=== PATIENT | male | born 1990 | race Hispanic/Latino ===

== ENCOUNTER 2018-12-27 19:46 | Emergency (ER) | payer OTHER ==
[2018-12-27] MEDS ORDERED: ORPHENADRINE CITRATE 30 MG/ML ML ONE (20:16)
[2018-12-27] MEDS ORDERED: KETOROLAC TROMETHAMINE 60 MG/2 ML VIAL ONE (20:16)
== END 2018-12-27 20:44 | disposition home or self-care (01) ==
LOC: EDH 19:46
DX: M62.830 Muscle spasm of back (principal); Z72.0 Tobacco use
CPT/HCPCS: 96372 ×2; 99284; J1885; J2360

== ENCOUNTER 2023-09-08 14:26 | Emergency (ER) | payer BC ==
[~2023-09-08] VITALS: Ht 177.8 cm; Wt 81.6 kg
[2023-09-08] MEDS ORDERED: IBUP-2070 PO (17:32)
[2023-09-08 18:00] VITALS: BP 135/74; PULSE 88; RESP 18; O2SAT 99
[2023-09-08] MEDS: IBUPROFEN 400 MG TABLET ONE (18:00)
[2023-09-08] MEDS: IBUPROFEN 800 MG TAB PO ONE (18:00)
== END 2023-09-08 18:02 | disposition home or self-care (01) ==
LOC: EDH 14:26
DX: M25.511 Pain in right shoulder (principal); M79.642 Pain in left hand; V89.2XXA Person injured in unspecified motor-vehicle accident, traffic, initial encounter; Y93.I9 Activity, other involving external motion; Y92.488 Other paved roadways as the place of occurrence of the external cause; Y99.8 Other external cause status
CPT/HCPCS: 73030

== ENCOUNTER 2024-03-31 11:39 | Emergency (ER) | payer SELFPAY ==
[~2024-03-31] VITALS: Ht 177.8 cm; Wt 81.6 kg
[~2024-03-31 11:39] MED LIST: IBUP-2070 PO
[2024-03-31] MEDS: LIDOCAINE HCL 1% 20 ML VIAL INJ SCH (12:00)
[2024-03-31] MEDS: ibuPROFEN 800 MG TAB PO ONE (12:54)
[2024-03-31] MEDS: teTANUS/diphthERIA TOXOID [ADULT] 0.5 ML VIAL IM ONE (12:54)
[2024-03-31] MEDS ORDERED: IBUP-2077 PO (13:07)
[2024-03-31 14:14] VITALS: BP 124/65; PULSE 84; RESP 15; TEMP 97.9; O2SAT 97
== END 2024-03-31 14:16 | disposition home or self-care (01) ==
LOC: EDH 11:39
DX: S01.511A Laceration without foreign body of lip, initial encounter (principal); S10.93XA Contusion of unspecified part of neck, initial encounter; S80.01XA Contusion of right knee, initial encounter; Y04.2XXA Assault by strike against or bumped into by another person, initial encounter; Y93.89 Activity, other specified; Y92.89 Other specified places as the place of occurrence of the external cause; Y99.8 Other external cause status
CPT/HCPCS: 40650; 70450; 72125; 73562; 90471; 90714

== ENCOUNTER 2024-10-25 14:37 | Emergency (ER) | payer SELFPAY ==
[~2024-10-25] VITALS: Ht 177.8 cm; Wt 81.6 kg
[~2024-10-25 14:37] MED LIST changes: +IBUP-2077 PO
--- NOTE | 2024-10-25 15:36 | NUR ---
EAR WAS IRRIGATED, LEFT SIDE.
[2024-10-25] MEDS ORDERED: CIPR7.5D7 OTIC (15:53)
--- NOTE | 2024-10-25 15:55 | ERN ---
General Chief Complaint: Earache Stated Complaint: EAR PAIN Time Seen by MD: 15:01 Time Seen by Midlevel: 15:01 Source: patient History of Present Illness Initial Comments 34-year-old male presents to the ED for evaluation of left ear pain onset three days ago. Patient reports decreased hearing, but denies any other associated symptoms at this time. Patient states I feel like there is fluid in there. States mother put Xavier in the ear canal. Denies significant PMHx. Allergies: Coded Allergies: No Known Allergies (Unverified Allergy, Unknown, 12/27/18) Home Meds Active Scripts Ciprofloxacin HCl/Dexameth (Ciproflox-Dexameth Otic Susp) 0.3 %-0.1 % Drops.susp, 4 DROP OTIC BID for 7 Days, #7.5 ML 0 Refills Prov:BORA VALENTIN 10/25/24 Ibuprofen (Ibuprofen 800 mg Tab) 800 Mg Tab, 800 MG PO Q6H PRN for PAIN, #30 TAB Prov:ANNY WHITTINGTON NP 03/31/24 Ibuprofen (Ibuprofen) 600 Mg Tablet, 600 MG PO Q6H PRN for PAIN, #20 TAB Prov:DELMI DC MD 09/08/23 Past Medical History Past Medical History: No Pertinent History Past Surgical History: None ROS Dictation Constitutional: Negative for fever,chills, and weight loss Eyes: Negative for injury, pain,redness, and discharge ENT: Positive for left ear pain Cardiovascular: Negative for chest pain, palpitations, and edema Respiratory: Negative for shortness of breath, cough, and wheezing, Abdomen/GI: Negative for abdominal pain, nausea, vomiting, diarrhea, and constipation Back: Negative for injury and pain : Negative for injury, bleeding and discharge MS/Extremity: Negative for injury and deformity Skin: Negative for rash, and discoloration Neuro: Negative for headache, weakness, numbness, tingling, and seizure Psych: Negative for suicide ideation, homicidal ideation, and hallucinations Physical Exam Physical Exam Dictation General: awake, alert, no acute distress Head/Face: Normocephalic, atraumatic Eyes: PERRL, EOMI, normal conjunctiva ENT: oral cavity clear, left erythematous canal, wax impaction. After removal normal TM bilaterally Neck: Supple, normal range of motion Cardiovascular: RRR, normal S1/S2 Respiratory: CTAB, no respiratory distress Skin: Warm, dry, normal turgor, no rash MS/Extremity: Pulses equal, no cyanosis, neurovascular intact, FROM Neuro: COAx4, GCS 15, strength 5/5, CN 2-12 intact, normal cerebellar exam, normal gait Psych: Normal behavior, mood, and affect normal MDM MDM: Differential diagnosis: left Ear pain, OM, OE Rationale: 34-year-old male presents to the ED for evaluation of left ear pain onset three days ago. Patient reports decreased hearing, but denies any other associated symptoms at this time. Patient states I feel like there is fluid in there. States mother put Xavier in the ear canal. Denies significant PMHx. Per physical examination cerumen impaction noted covering the left tympanic membrane, erythematous ear canal, after left ear lavage wax was removed normal tympanic membrane. Patient was educated on findings and diagnosis. Advised to follow up with PCP. Return to the emergency department if any worsening symptoms. Patient verbalized understanding. Patient stable for discharge. Risk of complication and/or morbidity or mortality of patient management: None Medications-Per medication reconciliation Need for hospitalization: Patient does meet criteria for hospitalization. Need for emergency major/minor surgery: No There are no social concerns with this patient. Prescription drug management Prescriptions will include symptomatic care I independently interpreted the test that were performed, results were reviewed by me and considered findings on radiology if ordered. ED Course Vital Signs Date Time Temp Pulse Resp B/P (MAP) Pulse Ox O2 Delivery O2 Flow Rate FiO2 10/25/24 16:01 98.1 92 16 138/74 100 Room Air* 0 21 10/25/24 14:38 98.2 96 16 156/93 98 Room Air* 0 21 10/25/24 14:38 98.1 96 16 156/93 100 Room Air 0 DX & DISP Disposition: Discharge Departure Impression: Primary Impression: Left ear impacted cerumen Additional Impression: Otitis externa of left ear Condition: Stable Scripts Ciprofloxacin HCl/Dexameth (Ciproflox-Dexameth Otic Susp) 0.3 %-0.1 % Drops.susp 4 DROP OTIC BID for 7 Days, #7.5 ML 0 Refills Prov: BORA VALENTIN 10/25/24 Additional Instructions: Discharge home. Rest. Follow up with primary care in 24 hours. Return to the ER for any acute changes or worsening symptoms. If any medications were prescribed take as directed. Okay to continue home medications unless otherwise discussed during your visit in the emergency room today. Patient was also advised to follow-up with primary care physician in 1 to 2 days for continued monitoring. Referrals: NONE (PCP) I performed the substantive portion of the visit. I have reviewed and personally made and approve the management plan that is documented in the notes by myself or the ANNE-MARIE. I acknowledge full responsibility for the patient's management plan. BORA VALENTIN October 25, 2024 15:55
[2024-10-25 16:01] VITALS: BP 138/74; PULSE 92; RESP 16; TEMP 98.1; O2SAT 100
== END 2024-10-25 16:02 | disposition home or self-care (01) ==
LOC: EDH 14:37
DX: H61.22 Impacted cerumen, left ear (principal); H60.92 Unspecified otitis externa, left ear; Z79.899 Other long term (current) drug therapy
CPT/HCPCS: 69209; 99283